=== PATIENT | female | born 1970 | race Caucasian/White ===

== ENCOUNTER 2017-12-28 13:52 | Emergency (ER) | payer OTHER, MEDICAID ==
[~2017-12-28] VITALS: Ht 175.3 cm; Wt 97.1 kg
[~2017-12-28 13:52] MED LIST: ABILIFY 5 MG TAB5 MG; ATIVAN0.5 MG; ATIVAN0.5 MG PO; BACTRIM DS TAB1 EACH PO; CELEXA 20 MG TA20 M1; CELEXA 20 MG TA20 M1 PO; CLEOCIN HCL150 MG PO; CLEOCIN HCL300 MG PO; COLACE100 MG PO; CYMBALTA; CYMBALTA60 MG PO; ENOXAPARIN30 MG/0.3 SQ; FLEXERIL PO; HYDROCODON-ACE1 EAC7 PO; IBUPROFEN 600600 M1 PO; KEFLEX500 MG PO; LEXAPRO20 MG PO; LORTAB 5 MG/5001 TA1 PO; NORCO 5-325 TA1 EACH PO; NORCO 7.5-3251 EACH PO; NORVASC10 MG PO; PERCOCET 5-3251 EACH PO; PERCOCET 7.5-31 EACH PO; PRISTIQ50 MG; PROMETHAZINE12.5 M1 PO; SIMVASTATIN20 MG PO; ZOCOR PO; ZOFRAN 4 MG ORAL4 M1 DIS; ZOLPIDEM PO
[2017-12-28] MEDS ORDERED: NOHOMEMEDICATIONS (14:00)
[2017-12-28] MEDS ORDERED: VOLTAREN100 GM TOP (14:45)
[2017-12-28 15:16] VITALS: BP 135/77
== END 2017-12-28 15:17 | disposition home or self-care (01) ==
LOC: M.ERS 13:52
DX: S60.012A Contusion of left thumb without damage to nail, initial encounter (principal); M25.542 Pain in joints of left hand; W23.0XXA Caught, crushed, jammed, or pinched between moving objects, initial encounter; Y93.89 Activity, other specified; Y92.89 Other specified places as the place of occurrence of the external cause; Y99.8 Other external cause status; I10 Essential (primary) hypertension; F32.9 Major depressive disorder, single episode, unspecified; Z90.710 Acquired absence of both cervix and uterus; F17.210 Nicotine dependence, cigarettes, uncomplicated; Z88.0 Allergy status to penicillin; Z88.5 Allergy status to narcotic agent; Z88.6 Allergy status to analgesic agent